=== PATIENT | female | born 1980 | race Caucasian/White ===

== ENCOUNTER 2021-10-20 01:44 | Emergency (ER) | payer SELFPAY ==
[2021-10-20] MEDS ORDERED: Promethazine HCl 25 MG/ML VIAL ONE (02:43)
[2021-10-20 02:44] LABS: #Basophils 0.1 10x3/uL (0.0-0.2); #Eosinphils 0.4 10x3/uL (0.0-0.5); #Monocytes 0.8 10x3/uL (0.0-1.1); #Neutrophils 4.2 10x3/uL (1.5-8.4); %Basophils 0.9 % (0.0-2.0); %Eosinophils 5.1 % (0.0-6.0); %Lymphocytes 30.4 % (18.0-47.0); %Monocytes 9.7 % (0.0-10.0); %Neutrophils 53.6 % (40.0-75.0); Mean Corpuscular HGB CONC 34.6 g/dL (32.0-36.0); Mean Corpuscular Hemoglobin 33.1 pg (27.0-33.0); Mean Corpuscular Volume 95.7 fl (81.6-98.3); Mean Platelet Volume 8.3 fl (7.4-10.4); Platelet Count 272 10x3/uL (150-450); RBC Distribution Width 13.7 % (11.5-14.5); Red Blood Cell (RBC) Count 4.84 10x6/uL (3.90-5.03); White Blood Cell (WBC) Count 7.9 10x3/uL (3.5-10.5)
[2021-10-20 02:57] LABS: PTT 26.1 sec (22.0-33.0); Prothrombin Time 10.4 sec (9.5-12.1)
[2021-10-20 03:02] LABS: ALT (SGPT) 14 U/L (8-55); AST (SGOT) 23 U/L (5-34); Albumin 3.3 g/dL (3.5-5.0); Alkaline Phosphatase 119 U/L (40-110); Anion Gap 14 mmol/L (10-20); BUN (Urea Nitrogen) Less than 4 mg/dL (7.0-18.7); Bilirubin, Total 0.3 mg/dL (0.2-1.2); Calc. Creatinine Clearance 0 mL/min (70-130); Calcium 8.8 mg/dL (7.8-10.44); Carbon Dioxide 25 mmol/L (22-29); Chloride 104 mmol/L (98-107); Globulin 3.5 g/dL (2.4-3.5); Glucose 91 mg/dL (70-105); Protein, Total 6.8 g/dL (6.0-8.3); Sodium 139 mmol/L (136-145)
== END 2021-10-20 04:45 | disposition home or self-care (01) ==
LOC: CSHERS 01:44
DX: T63.061A Toxic effect of venom of other North and South American snake, accidental (unintentional), initial encounter (principal); G40.909 Epilepsy, unspecified, not intractable, without status epilepticus; F17.210 Nicotine dependence, cigarettes, uncomplicated
CPT/HCPCS: 36415; 80053; 85025; 85610; 85730; 93005; 96374; J2550

== ENCOUNTER 2022-10-01 14:17 | Emergency (ER) | payer SELFPAY ==
[2022-10-01] MEDS ORDERED: Ondansetron PF 4 MG/2 ML Vial ONE (15:14)
[2022-10-01] MEDS ORDERED: HYDROmorphone 0.5 MG/0.5 ML SYRINGE ONE (15:15)
[2022-10-01] MEDS ORDERED: Lorazepam 2 MG/ML VIAL ONE (15:47)
== END 2022-10-01 18:39 | disposition home or self-care (01) ==
LOC: CSHERS 14:17
DX: M71.38 Other bursal cyst, other site (principal); G40.909 Epilepsy, unspecified, not intractable, without status epilepticus; I10 Essential (primary) hypertension; F17.290 Nicotine dependence, other tobacco product, uncomplicated; E78.00 Pure hypercholesterolemia, unspecified
CPT/HCPCS: 72148; 96374; 96375; 96376; J1170; J2060; J2405

== ENCOUNTER 2022-10-12 13:44 | Emergency (ER) | payer BC, SELFPAY ==
[2022-10-12] MEDS ORDERED: HYDROmorphone 0.5 MG/0.5 ML SYRINGE ONE ×2 (14:46)
[2022-10-12] MEDS ORDERED: Dexamethasone 10 MG/ML VIAL ONE (14:46)
[2022-10-12] MEDS ORDERED: Ondansetron ODT 4 MG TAB ONE (14:57)
== END 2022-10-12 15:30 | disposition home or self-care (01) ==
LOC: CSHERS 13:44
DX: M71.38 Other bursal cyst, other site (principal); G40.909 Epilepsy, unspecified, not intractable, without status epilepticus; I10 Essential (primary) hypertension; E78.00 Pure hypercholesterolemia, unspecified; F17.290 Nicotine dependence, other tobacco product, uncomplicated
CPT/HCPCS: 96372; 99283; J1100; J1170; Q0162

== ENCOUNTER 2022-10-29 11:45 | Emergency (ER) | payer BC, SELFPAY | END 2022-10-29 12:59 | disposition home or self-care (01) | LOC: CSHERS 11:45 | DX: G89.29 Other chronic pain (principal); M54.50 Low back pain, unspecified; R20.2 Paresthesia of skin | CPT/HCPCS: 99283 ==

== ENCOUNTER 2023-04-07 13:00 | Outpatient (CLI) | payer BC | END 2023-04-07 13:01 | disposition home or self-care (01) | LOC: CSHMRI 13:00 | PROVIDERS: ATTEND Neurological Surgery | DX: M47.26 Other spondylosis with radiculopathy, lumbar region (principal); M25.552 Pain in left hip; M48.061 Spinal stenosis, lumbar region without neurogenic claudication; M51.17 Intervertebral disc disorders with radiculopathy, lumbosacral region; M76.892 Other specified enthesopathies of left lower limb, excluding foot; M89.8X8 Other specified disorders of bone, other site; M94.8X8 Other specified disorders of cartilage, other site | CPT/HCPCS: 72158 ==

== ENCOUNTER 2023-04-16 02:53 | Emergency (ER) | payer BC ==
[2023-04-16] MEDS ORDERED: methylPREDNISolone Sod Succ/PF 125 MG/2 ML VIAL ONE (03:28)
[2023-04-16] MEDS ORDERED: Morphine 4 MG/ML VIAL ONE (03:28)
[2023-04-16] MEDS ORDERED: Gabapentin 300 MG CAP ONE (03:30)
[2023-04-16] MEDS ORDERED: Baclofen 10 MG TAB PO SCH (03:45)
== END 2023-04-16 04:22 | disposition home or self-care (01) ==
LOC: CSHERS 02:53
DX: M54.32 Sciatica, left side (principal); I10 Essential (primary) hypertension; G40.909 Epilepsy, unspecified, not intractable, without status epilepticus; F17.210 Nicotine dependence, cigarettes, uncomplicated
CPT/HCPCS: 96372; 99283; J2270; J2930